=== PATIENT | female | born 1965 | race Caucasian/White ===

== ENCOUNTER 2024-12-18 19:31 | Emergency (ER) | payer BC ==
[2024-12-18] MEDS: Diphtheria,Pertussis(Acell),Tetanus Vaccine 0.5 ML Syringe IM ONE (20:57)
== END 2024-12-18 21:12 | disposition home or self-care (01) ==
LOC: JP.ED 19:31
DX: S00.05XA Superficial foreign body of scalp, initial encounter (principal); Z23 Encounter for immunization; Z79.890 Hormone replacement therapy; W45.8XXA Other foreign body or object entering through skin, initial encounter; Y93.89 Activity, other specified
CPT/HCPCS: 90471; 90715; 99282-25